=== PATIENT | male | born 1960 | race Caucasian/White ===

== ENCOUNTER 2023-03-05 14:08 | Inpatient (IN) | payer BC ==
[2023-03-05 14:45] VITALS: BMI 34.9
[2023-03-05] MEDS ORDERED: NALOXONE HCL 0.4 MG/ML VIAL IM PRN (15:50)
[2023-03-05] MEDS ORDERED: POLYETHYLENE GLYCOL (HEALTHYLAX) 3350 17 GM PACKET PO PRN (15:50)
[2023-03-05] MEDS ORDERED: guaiFENesin 600 MG TABLET.ER (FP) PO PRN (15:50)
[2023-03-05] MEDS ORDERED: IBUPROFEN 400 MG TABLET (FP) PO PRN (15:50)
[2023-03-05] MEDS ORDERED: MAGNESIUM HYDROX 2400MG/30ML ORAL SUSPENSION 30 ML CUP PO PRN (15:50)
[2023-03-05] MEDS ORDERED: IBUPROFEN 600 MG TABLET (FP) PO PRN (15:50)
[2023-03-05] MEDS ORDERED: MAG HYDROX/AL HYDROX/SIMETH 30 ML UNIT-DOSE CUP PO PRN (15:50)
[2023-03-05] MEDS ORDERED: LOPERAMIDE HCL 2 MG CAPSULE PO PRN (15:50)
[2023-03-05] MEDS ORDERED: BENZOCAINE/MENTHOL (CHLORASEPTIC ) LOZENGE MM PRN (15:50)
[2023-03-05] MEDS ORDERED: ONDANSETRON *ODT* 4 MG TABLET SL PRN (15:50)
[2023-03-05] MEDS ORDERED: BENZONATATE 200 MG CAPSULE PO PRN (15:50)
[2023-03-05] MEDS ORDERED: NALOXONE HCL (KLOXXADO) 8 MG SPRAY NS PRN (15:50)
[2023-03-05] MEDS ORDERED: BISMUTH SUBSALICYLATE 524 MG/30 ML PO PRN (15:50)
[2023-03-05] MEDS ORDERED: DICYCLOMINE HCL 10 MG CAPSULE PO PRN (15:50)
[2023-03-05] MEDS ORDERED: ACETAMINOPHEN 325 MG TABLET (FP) PO PRN (15:50)
[2023-03-05] MEDS: THIAMINE HCL 100 MG TABLET (FP) PO SCH (22:15)
[2023-03-05] MEDS: METHOCARBAMOL 500 MG TABLET PO PRN (22:16)
[2023-03-05] MEDS: MELATONIN 5 MG TABLETS PO SCH (22:16)
[2023-03-05] MEDS: hydrOXYzine PAMOATE 25 MG CAPSULE (FP) PO PRN (22:16)
[2023-03-06] MEDS: PRENATAL VITAMINS W/ FOLIC ACID TABLET (FP) PO SCH (10:03)
[2023-03-06] MEDS: ENALAPRIL MALEATE 10 MG TABLET PO SCH (10:04)
[2023-03-06] MEDS: ASPIRIN 81 MG CHEWABLE TABLETS PO SCH (10:04)
[2023-03-06] MEDS: levETIRAcetam 500 MG TABLET (FP) PO SCH (10:04)
[2023-03-06] MEDS ORDERED: ACETAMINOPHEN 325 MG TABLET (FP) PO PRN (10:08)
[2023-03-06 12:26] LABS: HEMATOCRIT 40.4 % (35.4-49); HEMOGLOBIN 13.2 GM/dL (11.7-16.9); MCH 29.4 pg (25.7-33.7); MCHC 32.7 g/dl (32.0-35.9); MEAN CELL VOLUME 89.8 fl (80-96); MEAN PLT VOLUME 10.3 fl (7.5-11.1); PLATELET COUNT 66 10^3/uL (134-434); RDW 17.4 % (11.9-15.9); WHITE BLOOD COUNT 3.8 K/mm3 (4.0-10.0)
[2023-03-06 12:29] LABS: POTASSIUM 3.2 mmol/L (3.5-5.1)
[2023-03-06] MEDS: QUEtiapine FUMARATE 50 MG TABLET PO SCH ×2 (12:30→22:40)
[2023-03-06 12:37] LABS: ALBUMIN 3.2 g/dl (3.4-5.0); CALCIUM 8.3 mg/dL (8.5-10.1)
[2023-03-06 12:38] LABS: BLOOD UREA NITROGEN 7.4 mg/dL (7-18)
[2023-03-06 12:40] LABS: CREATININE 0.7 mg/dL (0.55-1.3)
[2023-03-06 12:42] LABS: BILIRUBIN,TOTAL 1.8 mg/dL (0.2-1); TOT PROT 6.7 g/dl (6.4-8.2)
[2023-03-06] MEDS: POTASSIUM CHLORIDE ORAL LIQUID 20 MEQ/15 ML PO SCH ×2 (13:51→17:42)
[2023-03-06] MEDS ORDERED: FAMOTIDINE 20 MG TABLET PO SCH (22:00)
[2023-03-06] MEDS: THIAMINE HCL 100 MG TABLET (FP) PO SCH (22:40)
[2023-03-06] MEDS: METHOCARBAMOL 500 MG TABLET PO PRN (22:40)
[2023-03-06] MEDS: MELATONIN 5 MG TABLETS PO SCH (22:40)
[2023-03-06] MEDS: hydrOXYzine PAMOATE 25 MG CAPSULE (FP) PO PRN (22:40)
[2023-03-06] MEDS: ARTIFICIAL TEARS (POLYVINYL ALCOHOL) OPTH DROPS OU SCH (22:40)
[2023-03-07] MEDS: METHOCARBAMOL 500 MG TABLET PO PRN (05:30)
[2023-03-07 06:55] VITALS: TEMP 97.8
[2023-03-07 09:53] VITALS: BP 127/87; PULSE 92; RESP 18
[2023-03-07] MEDS: levETIRAcetam 500 MG TABLET (FP) PO SCH (10:22)
[2023-03-07] MEDS: ASPIRIN 81 MG CHEWABLE TABLETS PO SCH (10:22)
[2023-03-07] MEDS: ENALAPRIL MALEATE 10 MG TABLET PO SCH (10:22)
[2023-03-07] MEDS: QUEtiapine FUMARATE 50 MG TABLET PO SCH (10:22)
[2023-03-07] MEDS: ARTIFICIAL TEARS (POLYVINYL ALCOHOL) OPTH DROPS OU SCH (10:24)
[2023-03-07] MEDS: PRENATAL VITAMINS W/ FOLIC ACID TABLET (FP) PO SCH (10:24)
== END 2023-03-07 12:32 | disposition home or self-care (01) | DRG 775 ==
LOC: YASAS 14:08 → Y6N 16:22
PROVIDERS: ADMIT Allergy & Immunology; ATTEND Surgery
PROC: HZ2ZZZZ Detoxification Services for Substance Abuse Treatment (ICD-10-PCS; principal; 2023-03-05)
DX: F10.20 Alcohol dependence, uncomplicated (principal); F10.24 Alcohol dependence with alcohol-induced mood disorder; F10.282 Alcohol dependence with alcohol-induced sleep disorder; F31.9 Bipolar disorder, unspecified; E87.6 Hypokalemia; G40.909 Epilepsy, unspecified, not intractable, without status epilepticus; I10 Essential (primary) hypertension; K21.9 Gastro-esophageal reflux disease without esophagitis; Z86.73 Personal history of transient ischemic attack (TIA), and cerebral infarction without residual deficits
CPT/HCPCS: 36415; 80053; 85027; 86780; 87635; 87811